=== PATIENT | male | born 1940 | race Caucasian/White ===

== ENCOUNTER 2018-05-20 11:13 | Emergency (ER) | payer MEDICAID ==
[2018-05-20 11:47] LABS: % BASOPHILS 0.8 % (0.0-2.0); % EOSINOPHILS 8.6 % (0.0-5.0); % LYMPHOCYTES 14.2 % (20.0-50.0); % MONOCYTES 11.3 % (2.0-10.0); % NEUTROPHILS 65.1 % (40.0-80.0); BASOPHILE ABSOLUTE 0.1 Th/cumm (0-0.2); EOSINOPHILE ABSOLUTE 0.9 Th/cmm (0.1-0.4); HEMOGLOBIN 10.1 gm/dL (12-16); LYMPHOCYTE ABSOLUTE 1.5 Th/cmm (1.5-3.0); MEAN CELL VOLUME 79.6 fl (80-99); MEAN CORPUSCULAR HEMOGLOBIN 25.9 pg (27.0-31.0); MEAN CORPUSCULAR HGB CONC 32.5 pg (28.0-36.0); MEAN PLATELET VOLUME 8.4 fl; MONOCYTE ABSOLUTE 1.2 Th/cmm (0.3-1.0); PLATELET COUNT 284 Th/cmm (150-400); WHITE BLOOD COUNT 10.7 Th/cmm (4.8-10.8)
[2018-05-20 12:02] LABS: ALB/GLOB RATIO 1.2 (1.0-1.8); ALBUMIN 3.6 gm/dL (4.2-5.5); ALKALINE PHOSPHATASE 184 U/L (34-104); ANION GAP 20.9 (7.0-16.0); BILIRUBIN,TOTAL 0.5 mg/dL (0.3-1.0); CALCIUM SERUM 8.9 mg/dL (8.6-10.3); CARBON DIOXIDE 24.9 mEq/L (21.0-31.0); CHLORIDE 94 mEq/L (98-107); GLUCOSE 112 mg/dL (70-105); POTASSIUM SERUM 4.8 mEq/L (3.5-5.1); SGOT 22 U/L (13-39); SGPT/ALT 13 U/L (7-52); SODIUM SERUM 135 mEq/L (136-145); TOTAL PROTEIN,SERUM 6.7 gm/dL (6.0-8.3)
--- NOTE | 2018-05-20 12:22 | ED Physician Chart ---
ED Chief Complaint/HPI - Patient Information Date Seen:: 05/20/18 Time Seen:: 11:40 Chief Complaint:: facial twitching History of Present Illness:: facial twitching in a patient who is do not resuscitate Diabetes mellitus Dialysis dependent patient. Allergies:: Allergies Allergy/AdvReac Type Severity Reaction Status Date / Time Sulfa (Sulfonamide Allergy Verified 05/20/18 11:39 Antibiotics) Vitals:: Vital Signs - 8 hr 05/20/18 11:40 Temp 98.5 F HR 69 RR 16 BP 154/54 O2 Sat % 93 Historian:: Medical Records Review:: Nurse's Note Reviewed, Transfer documents Reviewed ED Review of Systems - Review of Systems General/Constitutional: No fever, No chills, No weight loss, No weakness, No diaphoresis, No edema, No loss of appetite, Other (facial twitching) Skin: No skin lesions, No rash, No bruising Head: No headache, No light-headedness Eyes: No loss of vision, No pain, No diplopia ENT: No earache, No nasal drainage, No sore throat, No tinnitus Neck: No neck pain, No swelling, No thyromegaly, No stiffness, No mass noted Cardio Vascular: No chest pain, No palpitations, No PND, No orthopnea, No edema Pulmonary: No SOB, No cough, No sputum, No wheezing, Other (decreased breath sounds at bases) GI: No nausea, No vomiting, No diarrhea, No pain, No melena, No hematochezia, No constipation, No hematemesis G/U: No dysuria, No frequency, No hematuria Musculoskeletal: No bone or joint pain, No back pain, No muscle pain Endocrine: No polyuria, No polydipsia Psychiatric: No prior psych history, No depression, No anxiety, No suicidal ideation Hematopoietic: No bruising, No lymphadenopathy Allergic/Immuno: No urticaria, No angioedema Neurological: No syncope, No focal symptoms, No weakness, No paresthesia, No headache, No seizure, No dizziness, No confusion, No vertigo ED Past Medical History - Past Medical History Obtainable: Yes Past Medical History: DM, ESRD, Other (ENCEPHALOPATHY, SENILE DEMENTIA, MUSCLE WEAKNESS, ESRD, RENAL DIALYSIS, DIFFICULTY WALKING, C-DIFF, PNA) Family Medical History - Family Member Mother History Unknown: Yes ED Physical Exam - Physical Examination General/Constitutional: Awake, Well-developed, well-nourished, Alert, No distress, GCS 15, Non-toxic appearing, Ambulatory Other Gen/Cons comments:: speaks only welsh Head: Atraumatic Eyes: Lids, conjuctiva normal, PERRL, EOMI Other Skin comments:: RUE shunt ENMT: External ears, nose nl Neck: Nontender, Full ROM w/o pain, No nuchal rigidity, No stridor Other Respiratory comments:: decreased breath sounds at bases. Cardio Vascular: RRR, No murmur, gallop, rubs, NL S1 S2 GI: No tenderness/rebounding/guarding, No organomegaly, No hernia, Normal BS's, Nondistended, No mass/bruits, No McBurney tenderness : No CVA tenderness Other Extremities comments:: right above knee amputation LLE intact. Neuro/Psych: Alert/oriented, Mood normal Other Neuro/Psych comments:: decreased sensation from diabetes Other Misc comments:: slight ecchymosis on back ED Labs/Radiology/EKG Results - Lab Results Results: Laboratory Tests 05/20/18 05/20/18 11:26 11:40 WBC 10.7 RBC 3.90 Hgb 10.1 L Hct 31.0 L MCV 79.6 L MCH 25.9 L MCHC Differential 32.5 RDW 18.0 Plt Count 284 MPV 8.4 Neutrophils % 65.1 Lymphocytes % 14.2 L Monocytes % 11.3 H Eosinophils % 8.6 H Basophils % 0.8 POC Glucose 106 H ED Assessment - Assessment General Assessment: Head CT scan from today reveals no acute intracranial abnormality. Mild atrophy. Diffuse atherosclerotic vascular disease. spoke with Dr. Andriy Patterson at 1:41 p.m. I presented the case to him. He told me to send the patient back to the facility. ED Septic Shock - . Is Septic Shock (SBP<90, OR Lactate>4 mmol\L) present?: No - <6hrs of presentation: Vital Signs: Vital Signs - 8 hr 05/20/18 11:40 Temp 98.5 F HR 69 RR 16 BP 154/54 O2 Sat % 93 ED Reassessment (Disposition) - Reassessment Reassessment Condition:: Unchanged - Diagnosis Diagnosis:: Facial twitching Diabetes mellitus Dialysis dependent patient Chronic renal failure Anemia Elevated phosphorous - Aftercare/Follow up Instructions Notes:: Dr. Patterson is aware that the patient has not had dialysis today. Medication Prescribed:: no prescription - Patient Disposition Discharge/Transfer:: [facility] Condition at Disposition:: Stable, Unchanged
[2018-05-20 12:36] LABS: BUN - UREA NITROGEN 81 mg/dL (7-25); CREATININE - SERUM 8.9 mg/dL (0.7-1.3)
--- NOTE | 2018-05-20 12:38 | Diagnostic Imaging Report ---
Head CT without intravenous contrast Indication: Facial twitching Comparison: None Technique: Axial images were obtained from the vertex to the skull base without IV contrast. Coronal reconstructions were made. Total DLP: 567, CTDI33.5 FINDINGS: Images of the brain obtained without contrast demonstrate no acute hemorrhage. There is mild atrophy. No mass lesions identified. The ventricles and basal cisterns are patent. The mojica-white matter differentiation is preserved. There is no mass effect or midline shift. No skull fractures identified. No soft tissue swelling. The paranasal sinuses are clear. Diffuse atherosclerosis is noted. IMPRESSION: No acute intracranial abnormality. Mild atrophy. Diffuse atherosclerotic vascular disease.
== END 2018-05-20 15:32 ==
LOC: ER 11:13
DX: E11.22 Type 2 diabetes mellitus with diabetic chronic kidney disease (principal); N18.6 End stage renal disease; Z99.2 Dependence on renal dialysis; D64.9 Anemia, unspecified; E83.39 Other disorders of phosphorus metabolism; R25.3 Fasciculation; Z88.2 Allergy status to sulfonamides
CPT/HCPCS: 36415-UA; 70450-TC; 80053-TC; 82948-90; 83735-TC; 84100-TC; 84443-TC; 85025-TC; Z7502